=== PATIENT | female | born 1945 | race Caucasian/White ===

== ENCOUNTER 2020-06-19 20:32 | Inpatient (IN) | payer OTHER ==
[~2020-06-19] VITALS: Ht 167.6 cm; Wt 105.2 kg
[2020-06-19 20:46] VITALS: BP 126/103
[2020-06-19 21:38] LABS: ABSOLUTE LYMPHOCYTES 0.6 thou/uL (0.8-5.3); ABSOLUTE MONOCYTES 0.2 thou/uL (0.0-1.2); ABSOLUTE NEUTROPHILS 2.3 thou/uL (1.6-8.1); BASOPHILS 0.6 %; HEMOGLOBIN 8.5 gm/dL (12.0-15.0); LYMPHOCYTES 19.7 %; MCH 31.9 pg (26.0-34.0); MCHC 35.3 g/dL (28.0-37.0); MCV 90.2 fL (80.0-100.0); MONOCYTES 6.2 %; MPV 7.4 fl. (7.2-11.1); NUCLEATED RBCS 2 /100WBC; PLATELET COUNT* 106 thou/uL (150-400); POLYS 73.5 %; RBC 2.66 mil/uL (4.20-5.00); RDW-CV 16.5 % (10.5-14.5); WBC 3.1 thou/uL (4.0-11.0)
[2020-06-19 21:43] LABS: CALCIUM 6.8 mg/dL (8.5-10.1); CREATININE 0.9 mg/dL (0.6-1.3); POTASSIUM 3.2 mmol/L (3.5-5.1)
[2020-06-19 21:47] LABS: BE -5.5 mmol/L (-2 to +3); PCO2 43.5 mmHg (35.0-45.0)
[2020-06-19 21:53] LABS: ALBUMIN 2.9 g/dL (3.4-5.0); MAGNESIUM 1.6 mg/dL (1.8-2.4); TOTAL BILIRUBIN 1.1 mg/dL (<0.1-1.0); TOTAL PROTEIN 6.5 g/dL (6.4-8.2)
[2020-06-19 21:53] LABS: PO2 308.6 mmHg (75.0-100.0); pH 7.294 (7.340-7.450)
[2020-06-19 22:02] LABS: INR 1.2; PROTIME 11.9 Seconds (9.20-11.50)
[2020-06-20] VITALS (29 sets, daily range): BP systolic 85–212; BP diastolic 40–187
[2020-06-20 01:42] LABS: URINE BILIRUBIN NEGATIVE (Negative); URINE BLOOD 3+ (Negative); URINE CLARITY CLOUDY; URINE COLOR YELLOW; URINE GLUCOSE-RANDOM NEGATIVE (Negative); URINE KETONES 1+ (Negative); URINE LEUKOCYTES-REFLEX NEGATIVE (Negative); URINE NITRITE-REFLEX NEGATIVE (Negative); URINE PROTEIN 2+ (Negative); URINE UROBILINOGEN 0.2 E.U./dl (0.2-1.0)
[2020-06-20 01:50] LABS: SQUAMOUS 0-3 Few /LPF (0-3); URINE RBC 3-10 Few /HPF (0-2); URINE WBC-REFLEX 6-15 Few /HPF (0-5)
[2020-06-20 01:51] LABS: COARSE GRANULAR CASTS 4-10 Moderate /LPF (None Seen); CRYSTALS None Seen /LPF (None Seen); HYALINE CASTS 4-10 Moderate /LPF (None Seen); WBC CASTS 0-3 /LPF
[2020-06-20 01:57] LABS: INFLUENZA A ANTIGEN Negative (Negative); INFLUENZA B ANTIGEN Negative (Negative)
[2020-06-20 02:41] LABS: BE -5.6 mmol/L (-2 to +3); PCO2 38.4 mmHg (35.0-45.0)
[2020-06-20 02:43] LABS: PO2 162.6 mmHg (75.0-100.0)
[2020-06-20 09:37] LABS: CALCIUM 6.5 mg/dL (8.5-10.1); CREATININE 0.9 mg/dL (0.6-1.3); POTASSIUM 3.2 mmol/L (3.5-5.1)
[2020-06-20 10:14] LABS: % SATURATION 11 % (20-39); IRON 17 ug/dL (50-175)
--- NOTE | 2020-06-20 13:04 | EKG ---
[place] [address] ELECTROCARDIOGRAM REPORT Name: MARISELA INGRAMRUBEN FRANKLYN Room: [address] ADM IN .R.#: [id number] Admission: 06/19/20 Attend Phys: Ranjit Gordon, Discharge: Date of : 47 Date of Service: 06/19/202048 Report #: [id number] THIS REPORT FOR: //name// [facility] ED Test Date: 2020-06-19 Test Time: 20:49:57 Pat Name: MISSY INGRAM Department: Room: [facility] Gender: F Network Control Technician: [place] : 1945 Requested By: Amy Li Order Number: [id number] MD: Kevin Joshua Measurements Intervals Danese Rate: 103 P: 79 [place]: 144 QRS: 72 QRSD: 87 T: 66 QT: 336 QTc: 440 Interpretive Statements Sinus tachycardia Low voltage with right axis deviation No previous ECG available for comparison Electronically Signed On 06-20-2020 13:04:41 CDT by Kevin Joshua [email or web address] <ELECTRONICALLY SIGNED> By: Kevin Joshua MD, FAC 06/20/20 1304 48 48 Kevin Joshua MD, MERGED WITH [facility] /EPI
[2020-06-20 15:22] LABS: BE -3.2 mmol/L (-2 to +3); PCO2 33.1 mmHg (35.0-45.0); PO2 121.2 mmHg (75.0-100.0); pH 7.419 (7.340-7.450)
--- NOTE | 2020-06-20 16:56 | 2DMMODE ---
[place] [address] 2 D/M-MODE ECHOCARDIOGRAM Name: MISSY INGRAM FRANKLYN Room: 006[facility] IN ..#: [id number] Admission: 06/19/20 Attend Phys: Ranjit Gordon, Discharge: Date of : 47 Date of Service: 06/20/20 1655 Report #: [id number] THIS REPORT FOR: cc: Edgar Luke MD, Syed M. MD Liston, Michael J. MD [facility] ~ APPROVED REPORT Study performed: 06/20/2020 15:29:49 EXAM: Comprehensive 2D, Doppler, and color-flow Echocardiogram Patient Location: In-Patient Room #: 006 Status: routine BSA: 2.14 HR: 79 bpm BP: 89/47 mmHg Rhythm: NSR Other Information Study Quality: Good Indications Dyspnea 2D Dimensions IVSd: 9.84 (7-11mm) LVOT Diam: 19.26 (18-24mm) LVDd: 42.19 mm PWd: 8.89 (7-11mm) Ascending Ao: 31.69 (22-36mm) LVDs: 25.06 (25-40mm) Aortic Root: 27.80 mm Aortic Valve AoV Peak Leighton.: 1.52 m/s AO Peak Gr.: 9.26 mmHg LVOT Max P.38 mmHg AO Mean Gr.: 4.77 mmHg LVOT Mean P.94 mmHg LVOT Max V: 1.05 m/s AO V2 VTI: 29.15 cm LVOT Mean V: 0.63 m/s ADINA (VTI): 2.06 cm2 LVOT V1 VTI: 20.65 cm Mitral Valve E/A Ratio: 0.89 MV Decel. Time: 196.83 ms MV E Max Leighton.: 0.78 m/[place] [address] 2 D/M-MODE ECHOCARDIOGRAM Name: MISSY INGRAM Room: [address] IN .R.#: [id number] Admission: 06/19/20 Attend Phys: Ranjit Gordon, Discharge: Date of : 47 Date of Service: 06/20/20 1655 Report #: [id number] PHT: 57.08 ms MVA (PHT): 3.85 cm2 TDI E/Lateral E': 8.67 E/Medial E': 7.80 Medial E' Leighton.: 0.10 m/s Lateral E' Leighton.: 0.09 m/s Tricuspid Valve RAP Estimate: 10.00 mmHg TR Peak Gr.: 37.65 mmHg RVSP: 47.00 mmHg PA Pressure: 47.00 mmHg Left Ventricle The left ventricle is normal size. There is normal LV segmental wall motion. There is normal left ventricular wall thickness. Left ventricular systolic function is normal. LVEF is 55-60%. Transmitral Doppler flow pattern suggests impaired LV relaxation. Right Ventricle The right ventricle is normal size. The right ventricular systolic function is normal. Atria The left atrium size is normal. The right atrium size is normal. Aortic Valve Mild aortic valve sclerosis. No aortic regurgitation is present. There is no aortic valvular stenosis. Mitral Valve The mitral valve is normal in structure. There is no mitral valve regurgitation noted. No evidence of mitral valve stenosis. Tricuspid Valve The tricuspid valve is normal in structure. Trace tricuspid regurgitation. Moderate pulmonary hypertension. The RVSP is 50-55 mmHg. Pulmonic Valve The pulmonary valve is normal in structure. There is no pulmonic valvular regurgitation. Great Vessels The aortic root is normal in size[place] [address] 2 D/M-MODE ECHOCARDIOGRAM Name: MISSY INGRAM Room: [address] IN [facility]#: [id number] Admission: 06/19/20 Attend Phys: Ranjit Gordon, Discharge: Date of : 47 Date of Service: 06/20/20 1655 Report #: [id number] dilated. Pericardium There is no pericardial effusion. <Conclusion> The left ventricle is normal size. There is normal left ventricular wall thickness. Left ventricular systolic function is normal. LVEF is 55-60%. Transmitral Doppler flow pattern suggests impaired LV relaxation. Mild aortic valve sclerosis. There is no aortic valvular stenosis. Trace tricuspid regurgitation. Moderate pulmonary hypertension. The RVSP is 50-55 mmHg. The IVC is dilated. <ELECTRONICALLY SIGNED> By: Kevin Joshua MD, FACC 06/20/201654 54 54 Kevin Joshua MD, FACC /INF
[2020-06-20 18:03] LABS: CALCIUM 6.4 mg/dL (8.5-10.1); CREATININE 0.9 mg/dL (0.6-1.3); POTASSIUM 3.5 mmol/L (3.5-5.1)
[2020-06-21] VITALS (56 sets, daily range): BP systolic 87–149; BP diastolic 46–96
[2020-06-21 03:52] LABS: MCH 32.4 pg (26.0-34.0); MCHC 36.3 g/dL (28.0-37.0); MCV 89.1 fL (80.0-100.0); MPV 7.7 fl. (7.2-11.1); NUCLEATED RBCS 0 /100WBC; PLATELET COUNT* 97 thou/uL (150-400); RBC 2.15 mil/uL (4.20-5.00); RDW-CV 16.6 % (10.5-14.5); WBC 2.7 thou/uL (4.0-11.0)
[2020-06-21 04:08] LABS: PHOSPHORUS* 3.4 mg/dL (2.5-4.9)
[2020-06-21 04:09] LABS: ALBUMIN 2.3 g/dL (3.4-5.0); CALCIUM 6.3 mg/dL (8.5-10.1); MAGNESIUM 2.1 mg/dL (1.8-2.4); TOTAL BILIRUBIN 0.9 mg/dL (<0.1-1.0); TOTAL PROTEIN 5.4 g/dL (6.4-8.2)
[2020-06-21 05:05] LABS: HEMATOCRIT 19.1 % (37.0-47.0); HEMOGLOBIN 6.9 gm/dL (12.0-15.0)
[2020-06-21 06:36] LABS: ABSOLUTE LYMPHOCYTES 0.2 thou/uL (0.8-5.3); ABSOLUTE MONOCYTES 0.1 thou/uL (0.0-1.2); ABSOLUTE NEUTROPHILS 2.3 thou/uL (1.6-8.1); ATYPICAL LYMPHS 5 %; METAMYELOCYTES 4 %; PLATELET ESTIMATE DECREASED
[2020-06-21 08:32] LABS: HEMATOCRIT 21.3 % (37.0-47.0); HEMOGLOBIN 7.7 gm/dL (12.0-15.0)
[2020-06-21 11:44] LABS: BE -4.4 mmol/L (-2 to +3); PCO2 32.4 mmHg (35.0-45.0); pH 7.402 (7.340-7.450)
[2020-06-21 11:47] LABS: PO2 170.4 mmHg (75.0-100.0)
[2020-06-21 18:25] LABS: HEMATOCRIT 24.2 % (37.0-47.0); HEMOGLOBIN 8.7 gm/dL (12.0-15.0)
[2020-06-22] VITALS (24 sets, daily range): BP systolic 121–149; BP diastolic 62–95
[2020-06-22 04:33] LABS: ABSOLUTE LYMPHOCYTES 0.4 thou/uL (0.8-5.3); ABSOLUTE MONOCYTES 0.8 thou/uL (0.0-1.2); BASOPHILS 0.4 %; HEMOGLOBIN 8.2 gm/dL (12.0-15.0); LYMPHOCYTES 7.3 %; MCH 31.5 pg (26.0-34.0); MCHC 35.4 g/dL (28.0-37.0); MCV 88.9 fL (80.0-100.0); MONOCYTES 15.6 %; MPV 7.5 fl. (7.2-11.1); NUCLEATED RBCS 1 /100WBC; PLATELET COUNT* 154 thou/uL (150-400); POLYS 76.7 %; RBC 2.59 mil/uL (4.20-5.00); RDW-CV 16.8 % (10.5-14.5); WBC 5.2 thou/uL (4.0-11.0)
[2020-06-22 04:49] LABS: ALBUMIN 2.6 g/dL (3.4-5.0); CALCIUM 6.8 mg/dL (8.5-10.1); CREATININE 1.2 mg/dL (0.6-1.3); PHOSPHORUS* 3.5 mg/dL (2.5-4.9); TOTAL BILIRUBIN 0.8 mg/dL (<0.1-1.0); TOTAL PROTEIN 6.1 g/dL (6.4-8.2)
[2020-06-23] VITALS: BP 124/57
[2020-06-23 08:00] VITALS: BP 132/60
[2020-06-23 08:58] LABS: HEMATOCRIT 23.2 % (37.0-47.0); HEMOGLOBIN 8.2 gm/dL (12.0-15.0); MCH 31.7 pg (26.0-34.0); MCHC 35.2 g/dL (28.0-37.0); MPV 7.5 fl. (7.2-11.1); RBC 2.58 mil/uL (4.20-5.00); RDW-CV 16.9 % (10.5-14.5); WBC 6.3 thou/uL (4.0-11.0)
[2020-06-23 09:07] LABS: POTASSIUM 3.8 mmol/L (3.5-5.1)
[2020-06-23 16:02] VITALS: BP 131/64
[2020-06-23 20:30] VITALS: BP 125/72
[2020-06-24 04:17] VITALS: BP 131/63
[2020-06-24 07:30] VITALS: BP 142/71
--- NOTE | 2020-06-24 08:50 | CON ---
[address] [address] CONSULTATION Name: JUNAIDSONGROBERTO CARLOSMARISELARUBEN ESTES Room: [address] IN .R.#: [id number] Admission: 06/19/20 Attend Phys: Ranjit Gordon MD Discharge: Date of : 47 Report #: [id number] THIS REPORT FOR: //name// cc: Edgar Luke MD, Syed M. MD ~ THIS REPORT FOR: //name// CC: Ranjit Luke DATE OF SERVICE: 06/20/2020 CONSULT HAS BEEN REQUESTED: Dr. Gordon. INDICATION FOR CONSULTATION: [id number] respiratory failure. HISTORY OF PRESENT ILLNESS: This is a 75-year-old female with past medical history includes a history of lung cancer, has had right lower lobe resection, also has a history of COPD. The patient has a Port-A-Cath in the right side. The patient was recently admitted to [facility] and was just recently discharged after being treated for neutropenic fever and pneumonia. The patient upon discharge was on Augmentin. Details of her admission are not available at this time. The patient was now found to be in respiratory distress. I do not have details available, but apparently she required to be bagged with an Ambu bag in the field and had to be intubated. The patient currently is on the ventilator. She is on 40% FiO2, 5 of PEEP. Blood pressure is on the lower side, but still within the normal range. She is on a propofol infusion at 16. She is in fact ventilating and oxygenating adequately. Her potassium still is noted to be low at 3.2 this morning. The patient is on the ventilator and unable to provide a further history or review of systems as she is on the ventilator. No family was immediately available either. PAST MEDICAL HISTORY: COPD, lung cancer, right lower lobe resection, recently admission to [facility] with neutropenia, pneumonia, and obesity. Information regarding left ventricular ejection fraction oxygen or BiPAP use at home, not available. SOCIAL HISTORY: Unknown. FAMILY HISTORY: Unknown. ALLERGIES: Unknown. HOME MEDICATIONS: On Augmentin. Further details not available. CURRENT MEDICATIONS: List in [facility] [place] [address] CONSULTATION Name: MISSY INGRAM Room: [address]#: [id number] Admission: 06/19/20 Attend Phys: Ranjit Gordon MD Discharge: Date of : 47 Report #: [id number] PHYSICAL EXAMINATION: GENERAL: She is well sedated. Is on tidal volume of 480, rate of 20, and 40% FiO2, 5 of PEEP. She is saturating close to 100%.: Has a pulse of 70, blood pressure last recorded at 120/80. She is breathing at 18-20. She is afebrile with a temperature of 36.6. HEENT: Head is normocephalic and atraumatic. Endotracheal tube was low towards the lower part of the trachea, but still adequate. NECK: Does not show raised JVP, asymmetry, mass or lymph nodes. She has a Port-A-Cath on the right side. CHEST: Symmetrical expansion on inspection and palpation. On auscultation, breath sounds are bilaterally equal. I do not hear any added sounds. This is with the exception of some reduction in breath sounds at the right lung base. HEART: Regular. There is no murmur. ABDOMEN: Soft and nontender. EXTREMITIES: Lower extremities show trace edema, no calf tenderness. SKIN: Dry and intact. NEUROLOGICAL: Moves all extremities bilaterally equally and spontaneously with no focal deficit identified. DIAGNOSTIC DATA: The patient did have a CTA chest yesterday, I reviewed both the films as well as report. LABORATORY DATA: The patient had a CT of the abdomen and pelvis. I reviewed the report. We repeated a chest x-ray today and I reviewed it also The patient's arterial blood gases from yesterday in [facility] reviewed. I have ordered arterial blood gases again now, which are pending. Lab work, which still shows hypokalemia as of this morning in [facility] reviewed. Potassium is being replaced. Troponin I is noted to be trending upwards. Last proBNP was significantly elevated at more than 8000. ASSESSMENT AND PLAN: 1. Acute hypoxemic respiratory failure, likely with chronic component. She is stable on the ventilator. I ordered arterial blood gases, will review and then reassess the ventilator. If the patient is maintaining blood pressure, then I agree with a propofol infusion. I also ordered p.r.n. fentanyl. In case the patient becomes hypotensive again, then I will consider starting a fentanyl infusion and then cutting back or discontinuing propofol and possibly considering Precedex, if the patient's arterial blood gases today show improvement and patient remained stable overnight and we will consider weaning tomorrow. 2. Pulmonary infiltrates/healthcare associated pneumonia. Agree with antibiotics as currently ordered by Dr. Gordon. Cultures and serologies have also been sent and we will follow. 3. Chronic obstructive pulmonary disease exacerbation. Agree with Solu-Medrol and nebulized bronchodilators [place] [address] CONSULTATION Name: MISSY INGRAM Room: [address]#: [id number] Admission: 06/19/20 Attend Phys: Ranjit Gordon MD Discharge: Date of : 47 Report #: [id number] 4. History of non-small cell carcinoma of the lung, status post surgery. See discussion above. Has a Port-A-Cath. 5. Mild fluid overload/edema. We will do venous Dopplers. We will do an echo. If the patient has low urine output or has hypotension, then she would tolerate IV fluids in case metabolic acidosis is persisting she could also be given IV fluids for that reason. She does not have currently IV fluids running. I decided to only watch, but if any of these conditions appear then we could give her IV fluids while she is on the ventilator and then diurese her later before considering extubation. 6. Deep venous thrombosis prophylaxis. She is on Lovenox. 7. Clostridium difficile prophylaxis. We will order Florastor. 8. Gastrointestinal prophylaxis, on Protonix. The patient is critically ill at this time. Total time spent providing Critical Care is 42 minutes. <ELECTRONICALLY SIGNED> By: Awais Donald MD 06/24/20 0850 1525 [id number] Donald MD /nt
[2020-06-24 16:55] VITALS: BP 139/75
[2020-06-24 20:45] VITALS: BP 123/56
[2020-06-25 03:46] LABS: MPV 7.1 fl. (7.2-11.1)
[2020-06-25 03:47] LABS: HEMATOCRIT 23.5 % (37.0-47.0); HEMOGLOBIN 8.7 gm/dL (12.0-15.0); MCH 33.3 pg (26.0-34.0); MCHC 37.2 g/dL (28.0-37.0); MCV 89.6 fL (80.0-100.0); NUCLEATED RBCS 0 /100WBC; PLATELET COUNT* 211 thou/uL (150-400); RBC 2.62 mil/uL (4.20-5.00); RDW-CV 16.6 % (10.5-14.5); WBC 5.1 thou/uL (4.0-11.0)
[2020-06-25 03:51] LABS: ALBUMIN 2.6 g/dL (3.4-5.0); CALCIUM 6.8 mg/dL (8.5-10.1); CREATININE 1.1 mg/dL (0.6-1.3); MAGNESIUM 1.6 mg/dL (1.8-2.4); POTASSIUM 3.2 mmol/L (3.5-5.1); TOTAL BILIRUBIN 0.7 mg/dL (<0.1-1.0); TOTAL PROTEIN 5.5 g/dL (6.4-8.2)
[2020-06-25 06:57] LABS: ABSOLUTE LYMPHOCYTES 1.1 thou/uL (0.8-5.3); METAMYELOCYTES 4 %; MYELOCYTES 2 %; PROMYELOCYTES 1 %
[2020-06-25 06:59] LABS: ANISOCYTOSIS 2+
[2020-06-25 07:01] LABS: MICROCYTES 2+; PLATELET ESTIMATE ADEQUATE; TOXIC GRANULATION 1+
[2020-06-25 08:00] VITALS: BP 150/57
[2020-06-25 09:45] VITALS: BP 150/57
[2020-06-25 15:56] VITALS: BP 129/62
[2020-06-26 07:45] VITALS: BP 156/72
[2020-06-26] MEDS ORDERED: PREDNISONE 10 M10 MG PO (09:54)
[2020-06-26] MEDS ORDERED: PROTONIX40 M2 PO ×2 (09:54→10:05)
[2020-06-26] MEDS ORDERED: CEFDINIR300 MG PO (09:54)
[2020-06-26] MEDS ORDERED: LOMOTIL TABLET1 EACH PO (10:03)
[2020-06-26] MEDS ORDERED: TRELEGY ELLIPT1 EACH INH (10:04)
[2020-06-26] MEDS ORDERED: LOTENSIN20 MG PO (10:04)
[2020-06-26] MEDS ORDERED: NORVASC5 M1 PO (10:05)
[2020-06-26] MEDS ORDERED: ARIMIDEX1 MG PO (10:07)
[2020-06-26] MEDS ORDERED: LEVOXYL137 MCG PO (10:08)
[2020-06-26 10:17] VITALS: BP 156/72
[2020-06-26 11:53] VITALS: BP 156/72
[2020-06-26 13:13] VITALS: BP 156/72
[2020-06-26 16:03] VITALS: BP 156/72
== END 2020-06-26 15:50 | disposition home health service (06) | DRG 871 ==
LOC: M.ERS 20:32 → M.ICU 22:37 → M.TBA-ER 22:37 → M.ORTHSURG 22:37 → M.ICU 06-20 02:53 → M.2W 06-23 02:30 → M.ORTHSURG 06-23 14:52
PROVIDERS: Emergency Medicine; Internal Medicine Critical Care Medicine; ADMIT Internal Medicine; ATTEND Internal Medicine
PROC: 0BH17EZ Insertion of Endotracheal Airway into Trachea, Via Natural or Artificial Opening (ICD-10-PCS; 2020-06-20)
PROC: 5A1945Z Respiratory Ventilation, 24-96 Consecutive Hours (ICD-10-PCS; 2020-06-20)
PROC: 30233N1 Transfusion of Nonautologous Red Blood Cells into Peripheral Vein, Percutaneous Approach (ICD-10-PCS; principal; 2020-06-21)
PROC: 5A09357 Assistance with Respiratory Ventilation, Less than 24 Consecutive Hours, Continuous Positive Airway Pressure (ICD-10-PCS; 2020-06-23)
DX: A41.9 Sepsis, unspecified organism (principal); J96.21 Acute and chronic respiratory failure with hypoxia; J96.22 Acute and chronic respiratory failure with hypercapnia; J69.0 Pneumonitis due to inhalation of food and vomit; J44.1 Chronic obstructive pulmonary disease with (acute) exacerbation; D62 Acute posthemorrhagic anemia; E44.0 Moderate protein-calorie malnutrition; E87.6 Hypokalemia; E83.42 Hypomagnesemia; D64.9 Anemia, unspecified; I27.20 Pulmonary hypertension, unspecified; R65.20 Severe sepsis without septic shock; Z20.828 Contact with and (suspected) exposure to other viral communicable diseases; E66.9 Obesity, unspecified; Y95 Nosocomial condition; Z68.37 Body mass index [BMI] 37.0-37.9, adult; Z85.118 Personal history of other malignant neoplasm of bronchus and lung; Z92.21 Personal history of antineoplastic chemotherapy; Z79.899 Other long term (current) drug therapy; Z79.51 Long term (current) use of inhaled steroids